=== PATIENT | male | born 1990 | race African-American/Black ===

== ENCOUNTER 2017-08-25 18:00 | Emergency (ER) | payer OTHER ==
[~2017-08-25] VITALS: Ht 190.5 cm; Wt 159.8 kg
[2017-08-25 18:15] VITALS: BP 178/110
[2017-08-25] MEDS ORDERED: LIDOCAINE 1%, 20ML SQ ONE (19:00)
[2017-08-25] MEDS ORDERED: LIDOCAINE 1%, 20ML ONE (19:00)
[2017-08-25] MEDS ORDERED: DIPH,PERTUSS(ACELL),TET VAC/PF 0.5 ML IM-VACC ONE ×2 (19:00)
[2017-08-25] MEDS ORDERED: BACITRACIN ZINC OINT 500U/GM, 0.9 GM ONE (19:47)
== END 2017-08-25 20:09 | disposition home or self-care (01) ==
LOC: ED 20:00
DX: S61.214A Laceration without foreign body of right ring finger without damage to nail, initial encounter (principal); W45.8XXA Other foreign body or object entering through skin, initial encounter; Y93.89 Activity, other specified; Y99.8 Other external cause status; Y92.099 Unspecified place in other non-institutional residence as the place of occurrence of the external cause
CPT/HCPCS: 12041; 90471; 90715

== ENCOUNTER 2017-09-09 16:40 | Emergency (ER) | payer OTHER ==
[~2017-09-09] VITALS: Ht 190.5 cm; Wt 161.8 kg
[2017-09-09 16:46] VITALS: BP 136/84
== END 2017-09-09 17:00 ==
LOC: ED 16:54
DX: S61.214D Laceration without foreign body of right ring finger without damage to nail, subsequent encounter (principal); X58.XXXD Exposure to other specified factors, subsequent encounter; Z87.891 Personal history of nicotine dependence
CPT/HCPCS: 99281

== ENCOUNTER 2018-03-28 14:31 | Day surgery (SDC) | payer OTHER ==
[~2018-03-28] VITALS: Ht 190.5 cm; Wt 148.0 kg
[2018-03-28 14:39] VITALS: BP 126/82
[2018-03-28] MEDS ORDERED: BUPIVACAINE/PF 0.5% INFIL ONE (15:00)
[2018-03-28] MEDS ORDERED: HYDROmorphone 1 MG/ML, 1ML IV ONE (15:30)
[2018-03-28] MEDS ORDERED: ONDANSETRON ODT 4 MG PO ONE (15:30)
[2018-03-28] MEDS ORDERED: HYDROmorphone 1 MG/ML, 1ML ONE (15:32)
[2018-03-28] MEDS ORDERED: ONDANSETRON ODT 4 MG ONE (15:32)
[2018-03-28] MEDS ORDERED: BUPIVACAINE/PF 0.5% ONE (16:46)
[2018-03-28] MEDS ORDERED: CEFAZOLIN PMX 1GM/50ML 50 ML IV ONE (17:00)
[2018-03-28] MEDS ORDERED: PROPOFOL 10 MG/ML, 20ML ONE ×3 (17:33→17:34)
[2018-03-28] MEDS ORDERED: FENTANYL PF 100 MCG/2ML ONE ×4 (17:33→19:11)
[2018-03-28] MEDS ORDERED: CEFAZOLIN 1,000 MG ONE ×4 (17:33→17:50)
[2018-03-28] MEDS ORDERED: DEXAMETHASONE 4 MG/ML, 1ML ONE ×3 (17:33→17:48)
[2018-03-28] MEDS ORDERED: KETOROLAC 30 MG/1 ML ONE ×2 (17:33→18:03)
[2018-03-28] MEDS ORDERED: SUCCINYLCHOLINE 20 MG/ML, 10ML ONE (17:36)
[2018-03-28] MEDS ORDERED: DIPHTHERIA-TETANUS ADULT 0.5ML IM-VACC ONE ×2 (18:09→18:30)
[2018-03-28] MEDS ORDERED: ACETAMINOPHEN 325 MG TABLET PO PRN (18:30)
[2018-03-28] MEDS ORDERED: MEPERIDINE/PF 25MG/0.5ML IVPush PRN (18:30)
[2018-03-28] MEDS ORDERED: ONDANSETRON 2MG/ML, 2ML IVPush PRN (18:30)
[2018-03-28] MEDS ORDERED: PROMETHAZINE 12.5 MG SUPP PR PRN (18:30)
[2018-03-28] MEDS ORDERED: ACETAMINOPHEN 650 MG/20.3 ML UDC ONE (18:58)
[2018-03-28] MEDS ORDERED: OXYcodone 5 MG/5 ML ORAL.SOL UDC ONE ×2 (18:58→19:11)
[2018-03-28] MEDS: OXYcodone 5 MG/5 ML ORAL.SOL UDC PO PRN ×2 (18:59→19:14)
[2018-03-28] MEDS: FENTANYL PF 100 MCG/2ML IV PRN ×2 (19:14→19:24)
[2018-03-28] MEDS ORDERED: HYDR-3245 PO (21:10)
[2018-03-28] MEDS ORDERED: HYDROmorphone 1 MG/ML, 1ML IM PRN (21:30)
[2018-03-28] MEDS ORDERED: OXYcodone/APAP 5/325MG TABLET PO PRN (21:30)
== END 2018-03-28 23:00 | disposition home or self-care (01) ==
LOC: EDSTATUS 17:15 → OR 20:25 → 4NOR 20:28 → OR 21:00 → 4NOR 22:05 → OR 22:05
PROVIDERS: ATTEND Emergency Medicine
DX: S68.112A Complete traumatic metacarpophalangeal amputation of right middle finger, initial encounter (principal); K21.9 Gastro-esophageal reflux disease without esophagitis; F17.210 Nicotine dependence, cigarettes, uncomplicated; X58.XXXA Exposure to other specified factors, initial encounter; Y93.89 Activity, other specified; Y92.89 Other specified places as the place of occurrence of the external cause; Y99.8 Other external cause status
CPT/HCPCS: 26236; 73130; 90714; J0330; J0690; J1100; J1170; J1885; J2704; J3010; J3490; Q0162; 90471; 96374; 96375